=== PATIENT | female | born 1995 | race Caucasian/White ===

== ENCOUNTER 2016-09-15 13:26 | Emergency (ER) | payer MEDICAID ==
[~2016-09-15] VITALS: Ht 167.6 cm; Wt 126.3 kg
[~2016-09-15 13:26] MED LIST: ALBU18HF INH; ALBU2.5V NPPB; BUDE10.2 INH; FLUT1BLS INH; HYDR50TA13 PO; PRED10TA PO
[2016-09-15 13:29] VITALS: BP 138/91
[2016-09-15] MEDS ORDERED: DIPHENHYDRAMINE 50 MG/ML, 1ML IM ONE (14:00)
[2016-09-15] MEDS ORDERED: FAMOTIDINE 20 MG TABLET PO ONE (14:00)
[2016-09-15] MEDS ORDERED: FAMOTIDINE 20 MG TABLET ONE (14:09)
[2016-09-15] MEDS ORDERED: DIPHENHYDRAMINE 50 MG/ML, 1ML ONE (14:13)
== END 2016-09-15 15:44 | disposition home or self-care (01) ==
LOC: ED 14:31
DX: R22.0 Localized swelling, mass and lump, head (principal); T88.6XXA Anaphylactic reaction due to adverse effect of correct drug or medicament properly administered, initial encounter; T36.1X5A Adverse effect of cephalosporins and other beta-lactam antibiotics, initial encounter; Y92.89 Other specified places as the place of occurrence of the external cause; Z88.1 Allergy status to other antibiotic agents
CPT/HCPCS: 96372; 99283; J1200; J7512

== ENCOUNTER 2016-09-26 07:05 | Emergency (ER) | payer MEDICAID ==
[~2016-09-26] VITALS: Ht 167.6 cm; Wt 126.9 kg
[2016-09-26] MEDS ORDERED: SULF1TAB24 PO (07:32)
[2016-09-26 09:41] VITALS: BP 140/76
== END 2016-09-26 09:43 | disposition home or self-care (01) ==
LOC: ED 08:44
DX: L50.0 Allergic urticaria (principal); L51.2 Toxic epidermal necrolysis [Lyell]; Z88.1 Allergy status to other antibiotic agents
CPT/HCPCS: 81001; 87086; 99284; J7512